=== PATIENT | male | born 2000 | race Caucasian/White ===

== ENCOUNTER 2024-07-26 19:54 | Emergency (ER) | payer OTHER ==
[2024-07-26 20:14] VITALS: BP 151/104; PULSE 79; RESP 18; TEMP 99.1; BMI 32.9
[2024-07-26] MEDS ORDERED: ONDANSETRON 4 MG/2 ML VIAL ONE (20:57)
[2024-07-26] MEDS: SODIUM CHLORIDE 1,000 ML IV ONE (21:16)
[2024-07-26] MEDS: ONDANSETRON 4 MG/2 ML VIAL IVPB ONE (21:17)
[2024-07-26 21:23] LABS: HEMOGLOBIN 17.8 G/dL (11.7-16.9); MCH 30.4 pg (25.7-33.7); MCHC 34.9 g/dl (32.0-35.9); MEAN PLT VOLUME 8.2 fl (7.5-11.1); PLATELET COUNT 303.8 10^3/uL (134-434); RBC 5.86 10^6/uL (4.00-5.60); RDW 13.2 % (11.9-15.9); WHITE BLOOD COUNT 14.8 10^3/uL (4.0-10.8)
[2024-07-26 21:44] LABS: ALBUMIN 4.9 g/dl (3.4-5.0); BILIRUBIN,TOTAL 0.8 mg/dl (0.2-1); CREATININE 0.9 mg/dl (0.6-1.3); POTASSIUM 3.9 mmol/L (3.5-5.1); TOT PROT 7.1 g/dl (6.4-8.2)
[2024-07-26] MEDS ORDERED: ACETAMINOPHEN 500 MG TABLET (FP) ONE (22:12)
[2024-07-26] MEDS: ACETAMINOPHEN 500 MG TABLET (FP) PO ONE (22:15)
== END 2024-07-26 23:04 | disposition home or self-care (01) ==
LOC: FER 19:54
PROC: 3E033GC Introduction of Other Therapeutic Substance into Peripheral Vein, Percutaneous Approach (ICD-10-PCS; principal; 2024-07-26)
PROC: 3E0337Z Introduction of Electrolytic and Water Balance Substance into Peripheral Vein, Percutaneous Approach (ICD-10-PCS; 2024-07-26)
DX: R10.13 Epigastric pain (principal); R11.2 Nausea with vomiting, unspecified
CPT/HCPCS: 36415; 80053; 85027; 99284-25